=== PATIENT | female | born 2000 | race Caucasian/White ===

== ENCOUNTER 2022-05-04 05:08 | Emergency (ER) | payer OTHER ==
[~2022-05-04] VITALS: Ht 160 cm; Wt 61.2 kg
--- NOTE | 2022-05-04 05:09 | NUR ---
PT TAKEN TO BED 3
[2022-05-04 05:12] VITALS: BP 137/71
--- NOTE | 2022-05-04 05:17 | NUR ---
ERMD AT BEDSIDE.
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
[2022-05-04] MEDS ORDERED: diazePAM 5 MG TAB PO ONE (05:25)
[2022-05-04] MEDS ORDERED: ACETAMINOPHEN EXTRA STRENGTH 500 MG TAB PO ONE (05:25)
--- NOTE | 2022-05-04 05:33 | NUR ---
PT'S MOM HEMANTH, [phone]. CALL WHEN READY FOR D/C OR UPDATES AND CHANGES
--- NOTE | 2022-05-04 06:08 | NUR ---
PT BACK FROM CT.
--- NOTE | 2022-05-04 06:12 | NUR ---
JANET MCINTOSH AT BEDSIDE.
--- NOTE | 2022-05-04 06:16 | NUR ---
PT GIVEN ANOTHER ICE PACK PER REQUEST.
--- NOTE | 2022-05-04 06:53 | NUR ---
PT BACK FROM RAD.
--- NOTE | 2022-05-04 07:16 | NUR ---
REPORT GIVEN TO SHAQUILLE SPENCER. TRANSFER OF CARE AT THIS TIME.
--- NOTE | 2022-05-04 07:20 | NUR ---
RECEIVED BEDSIDE REPORT FROM BRADEN SOTO RN FOR CONTINUITY OF CARE. PT [id number], LYING IN THE BED, ON RM AIR. ABLE TO MAKE NEEDS KNOWN. COMPLAINS OF 8/10 ELBOW PAIN AT THIS TIME. WILL FOLLOW UP. WILL CONTIONUE TO CLOSELY MONITOR.
[2022-05-04] MEDS ORDERED: HYDROcodone/APAP 5/325 MG 1 TAB TAB PO ONE (07:25)
[2022-05-04] MEDS ORDERED: BACITRACIN OINT 500 UNITS/GM PKT TP ONE (07:45)
[2022-05-04] MEDS ORDERED: NAPR-54 PO (07:47)
[2022-05-04] MEDS ORDERED: ONDA-188 SL (07:47)
[2022-05-04] MEDS ORDERED: CYCL-711 PO (07:47)
[2022-05-04 08:02] VITALS: BP 137/71
--- NOTE | 2022-05-04 08:06 | NUR ---
Patient discharged with v/s stable. Written and verbal after care instructions given and explained. Patient alert, oriented and verbalized understanding of instructions. Ambulatory with steady gait. All questions addressed prior to discharge. ID band removed. Patient advised to follow up with PMD. Rx of FLEXERIL, NAPROXYN, ZOFRAN given. Patient educated on indication of medication including possible reaction and side effects. Opportunity to ask questions provided and answered.
== END 2022-05-04 08:06 | disposition home or self-care (01) ==
LOC: MED 05:08
DX: S13.4XXA Sprain of ligaments of cervical spine, initial encounter (principal); S53.401A Unspecified sprain of right elbow, initial encounter; S06.0X9A Concussion with loss of consciousness of unspecified duration, initial encounter; R07.89 Other chest pain; Z04.71 Encounter for examination and observation following alleged adult physical abuse; X58.XXXA Exposure to other specified factors, initial encounter; Y93.89 Activity, other specified; Y92.89 Other specified places as the place of occurrence of the external cause; Y99.8 Other external cause status
CPT/HCPCS: 70450; 71101; 72125; 73080; 99284

== ENCOUNTER 2023-03-25 02:15 | Emergency (ER) | payer OTHER ==
[~2023-03-25] VITALS: Ht 160 cm; Wt 59.0 kg
[~2023-03-25 02:15] MED LIST: CYCL-711 PO; NAPR-54 PO; ONDA-188 SL
[2023-03-25 02:20] VITALS: BP 144/89
[2023-03-25 02:41] VITALS: BP 144/89
--- NOTE | 2023-03-25 02:41 | NUR ---
PATIENT BIB [employer]. PATIENT EXAMINED BY DR. MONTGOMERY. PATIENT MEDICALLY CLEARED AND RELEASED IN CUSTODY IN STABLE CONDITION. ORIGINAL PRE-BOOK FORM GIVEN TO OFFICER TRAVIS.
== END 2023-03-25 02:41 ==
LOC: MED 02:15
DX: Y04.0XXA Assault by unarmed brawl or fight, initial encounter; Y93.89 Activity, other specified; Y92.89 Other specified places as the place of occurrence of the external cause; Y99.8 Other external cause status
CPT/HCPCS: 99283